=== PATIENT | male | born 2000 | race Caucasian/White ===

== ENCOUNTER 2020-10-25 05:22 | Emergency (ER) | payer BC, SELFPAY ==
[2020-10-25] VITALS (17 sets, daily range): BP systolic 102–129; BP diastolic 59–86; PULSE 66–99; RESP 12–24; TEMP 36.4; O2SAT 97–98
--- NOTE | ~2020-10-25 | CT_ITS ---
EXAMINATION: CT abdomen pelvis w con INDICATION: Right lower quadrant pain TECHNIQUE: Computed tomographic images of the abdomen and pelvis were obtained after the administrati on of 100 cc of Omnipaque 350 intravenous contrast. The dose-length product (DLP) was 228.02 mGy-cm. Automated exposure control and iterative reconstruction technique were employed. COMPARISON: None available FINDINGS: The lung bases are clear. The heart size is normal. The liver, spleen, pancreas, gallbladde r, and adrenal glands are normal. The kidneys are unremarkable. No pathologically enlarged abdominal or pelvic lymph nodes are identified. There is no free intraperitoneal gas or evidence of bowel obstr uction. The appendix is normal. There is questionable wall thickening of the ascending colon. There i s a greater than normal number of fluid-filled, nondistended small bowel loops. IMPRESSION: 1. Possible mild colitis of the ascending colon. Reviewed, dictated and finalized at location A.
--- NOTE | 2020-10-25 05:39 | ED.GENADULT ---
HPI - General Adult General Chief complaint: Abdominal Pain <Robert Daigle MD - Last Filed: 10/25/20 06:55> Stated complaint: n/v/d <Robert Daigle MD - Last Filed: 10/25/20 06:55> Time Seen by Provider: 10/25/20 05:34 <Robert Daigle MD - Last Filed: 10/25/20 06:55> History of Present Illness HPI narrative: Patient is a 19-year-old gentleman who presents to the emergency department with chief complaint of abdominal pain nausea vomiting and diarrhea. Patient states this evening the pain began suddenly and had multiple bouts of nausea and vomiting. The patient reports he is been unable to keep fluids down has had multiple rounds of diarrhea as well. Patient denies fever reports that his abdomen feels achy and cramping is worse on the right lower and right upper quadrants. Patient reports no significant past medical history reports no abdominal surgery history <Robert Daigle MD - Last Filed: 10/25/20 06:55> Related Data Allergies/adverse reactions: Allergies Allergy/AdvReac Type Severity Reaction Status Date / Time Penicillins Allergy Unknown Verified 11/03/16 10:07 <Robert Daigle MD - Last Filed: 10/25/20 06:55> Review of Systems Review of Systems: Narrative: A 10 system review of systems was completed on the patient and is negative except for what is stated in the HPI. Nursing and ancillary documentation was reviewed. <Robert Daigle MD - Last Filed: 10/25/20 06:55> PMFSH Social History Social History: Social History Gender identity (if verbalized by the patient): Male <Robert Daigle MD - Last Filed: 10/25/20 06:55> Comments Past medical history is negative Social history the patient reports to occasionally smoking cigarettes <Robert Daigle MD - Last Filed: 10/25/20 06:55> Exam Narrative: Exam Narrative: GENERAL: Well-appearing, well-nourished, and in no acute distress. HEAD: Normocephalic, atraumatic. EYES: PERRLA and EOMI. ENT: Nares clear, no rhinorrhea or epistaxis. Mucous membranes moist. NECK: Supple. CHEST: Clear to auscultation. No respiratory distress. HEART: Regular rate and rhythm. No murmur heard. Normal peripheral pulses. ABDOMEN: Soft, nontender, nondistended, normal active bowel sounds. EXTREMITIES: Normal range of motion. No edema. SKIN: Warm, dry, no rash. NEURO: No focal deficits. Alert and oriented x3. PSYCH: Normal mood and affect. <Robert Daigle MD - Last Filed: 10/25/20 06:55> Course Vital Signs Vital signs: Vital Signs Temperature 36.4 C 10/25/20 05:30 Pulse Rate 99 10/25/20 05:30 Respiratory Rate 12 10/25/20 05:30 Blood Pressure 126/74 10/25/20 05:30 Pulse Oximetry 98 10/25/20 05:30 Temperature 36.4 C 10/25/20 05:30 Pulse Rate 73 10/25/20 06:31 Respiratory Rate 18 10/25/20 06:31 Blood Pressure 109/65 10/25/20 06:31 Pulse Oximetry 98 10/25/20 05:30 <Robert Daigle MD - Last Filed: 10/25/20 06:55> Vital Signs Temperature 36.4 C 10/25/20 05:30 Pulse Rate 99 10/25/20 05:30 Respiratory Rate 12 10/25/20 05:30 Blood Pressure 126/74 10/25/20 05:30 Pulse Oximetry 98 10/25/20 05:30 Temperature 36.4 C 10/25/20 05:30 Pulse Rate 73 10/25/20 06:31 Respiratory Rate 18 10/25/20 06:31 Blood Pressure 109/65 10/25/20 06:31 Pulse Oximetry 98 10/25/20 05:30 <Gaudencio Gtz MD - Last Filed: 10/25/20 08:54> Medical Decision Making Vital Signs Vital Signs: Vital Signs Temperature 36.4 C 10/25/20 05:30 Pulse Rate 99 10/25/20 05:30 Respiratory Rate 12 10/25/20 05:30 Blood Pressure 126/74 10/25/20 05:30 Pulse Oximetry 98 10/25/20 05:30 Temperature 36.4 C 10/25/20 05:30 Pulse Rate 73 10/25/20 06:31 Respiratory Rate 18 10/25/20 06:31 Blood Pressure 109/65 10/25/20 06:31 Pulse Oximetry 98 10/25/20 05:30
[2020-10-25] MEDS: DICYCLOMINE HCL INJ 20 MG/2 ML VIAL IM (05:50)
[2020-10-25] MEDS: ONDANSETRON INJ 4 MG/2 ML VIAL IV PUSH (05:50)
[2020-10-25] MEDS: MORPHINE SULFATE (*CRX) 4 MG/ML INJ IV PUSH (05:53)
[2020-10-25 06:06] LABS: Basophils Percent Auto 0.2 % (0.2-1.2); Eosinophils Absolute Auto 0.1 K/mm3 (0-0.3); Eosinophils Percent Auto 0.3 % (0-4.4); Hematocrit 50.1 % (42.0-52.0); Hemoglobin 17.7 g/dL (14.0-18.0); Immature Granulocyte Absolute 0.07 K/mm3 (0.00-0.031); Immature Granulocyte Percent A 0.5 % (0-0.5); Lymphocytes Absolute Auto 0.39 K/mm3 (0.9-3.2); Lymphocytes Percent Auto 2.6 % (18.3-44.2); Mean Corpuscular HGB Conc 35.3 g/dl (32-36); Mean Corpuscular Hemoglobin 30.5 pg (26-34); Mean Corpuscular Volume 86.4 fl (80-100); Mean Platelet Volume 9.3 fl (7.4-10.4); Monocytes Percent Auto 6.3 % (2.6-8.5); Neutrophils Absolute Auto 13.7 K/mm3 (1.3-6.7); Neutrophils Percent Auto 90.1 % (45.5-73.1); Platelet Count Result 321 k/mm3 (150-375); Red Cell Distribution Width 12.1 % (11.5-14.5); White Blood Count 15.2 K/mm3 (4.5-10.0)
[2020-10-25] MEDS: SODIUM CHLORIDE 0.9% IV 2,000 ML 999 ML IV CONT (06:12)
[2020-10-25 06:17] LABS: Alanine Aminotransferase 31 U/L (4-50); Albumin Level 5.7 g/dL (3.5-5.1); Alkaline Phosphatase 85 U/L (38-126); Anion Gap 11 mmol/L (8-16); Aspartate Amino Transferase 35 U/L (17-59); Bilirubin,Total 1.8 mg/dL (0.2-1.3); Blood Urea Nitrogen 21 mg/dL (9-20); Calcium 10.3 mg/dL (8.4-10.2); Carbon Dioxide 31 mmol/L (22-30); Chloride 101 mmol/L (98-107); Estimated Glomerular Filt Rate > 60; Glucose 135 mg/dL (75-110); Lipase 57 U/L (23-300); Potassium 4.1 mmol/L (3.4-5.0); Sodium 143 mmol/L (137-145)
--- NOTE | 2020-10-25 07:30 | PC.NURSE ---
Pt not yet provided urine sample. Reiterated importance of providing sample quickly, pt will attempt to avoid again.
[2020-10-25 07:54] LABS: Add Urine Microscopic? NO; Appearance Urine Clear (Clear); Bilirubin Urine Negative (Negative); Blood Urine Negative (Negative); Color Urine Straw (Yellow); Glucose Urine UA Negative (Negative); Ketones Urine Negative (Negative); Leukocyte Esterase Ur Negative LEU/UL (Negative); Nitrate Urine Negative (Negative); Protein Urine Negative (Negative); Urobilinogen Urine Negative mg/dL (<2.0)
[2020-10-25 07:55] LABS: Specific Grav Ur > 1.060 (1.001-1.035)
== END 2020-10-25 09:10 | disposition home or self-care (01) ==
PROVIDERS: Emergency Medicine; Emergency Provider Emergency Medicine; PCP Family Medicine
DX: K52.9 Noninfective gastroenteritis and colitis, unspecified (principal)
CPT/HCPCS: 36415; 74177; 80053; 81003; 83690; 85025; 96361; 96372; 96374; 96375; 99284; J0500; J2270; J2405; J7030; Q9967

== ENCOUNTER 2020-11-09 06:52 | Outpatient (CLI) | payer BC, SELFPAY ==
--- NOTE | ~2020-11-09 | MR_ITS ---
EXAMINATION: MR ankle LT wo con DATE: 11/09/2020 08:12 INDICATION: Osteochondral defect of left ankle. Left ankle pain. TECHNIQUE: Magnetic resonance imaging (MRI) of the left ankle was performed without intravenous contr ast. Sequences included sagittal PD-weighted FS FSE, sagittal PD-weighted FSE, coronal PD-weighted FS FSE, coronal PD-weighted FSE, axial PD-weighted FS FSE, and axial PD-weighted FSE. COMPARISON: None. FINDINGS: Medial ankle ligaments: The superficial and deep components of the deltoid ligament are normal. Lateral ankle ligaments: There are changes of prior sprain of anterior talofibular ligament characterized by increased signal intensity. Calcaneofibular ligament and posterior talofibular ligament are normal. The anterior and p osterior tibiofibular ligaments are normal. Tendons: The anterior and medial ankle tendons are normal. There is a longitudinal split tear of peroneus long us tendon. There is mild peroneus longus tendinopathy. Achilles tendon is normal. Plantar fascia: Normal. Bones/other: The talar dome is normal. There is bone marrow edema in medial and lateral malleoli, consistent with stress reaction. There is a skin marker plantar to the midfoot. Fluid: There is a small ankle joint effusion. IMPRESSION: 1. Normal talar dome. 2. Longitudinal split tear of peroneus longus tendon. 3. Bone marrow edema in medial lateral malleoli, consistent with stress reaction. 4. Changes of sprain of anterior talofibular ligament. Reviewed, dictated and finalized at location A. IMPRESSION: 1. Normal talar dome. 2. Longitudinal split tear of peroneus longus tendon. 3. Bone marrow edema in medial lateral malleoli, consistent with stress reactio n. 4. Changes of sprain of anterior talofibular ligament.
== END 2020-11-09 06:53 | disposition home or self-care (01) ==
PROVIDERS: PCP Family Medicine
DX: M95.8 Other specified acquired deformities of musculoskeletal system (principal)
CPT/HCPCS: 73721

== ENCOUNTER 2022-06-25 23:39 | Emergency (ER) | payer BC, SELFPAY ==
[2022-06-25 23:47] VITALS: BP 127/57; PULSE 100; RESP 16; TEMP 37.7; O2SAT 98
[2022-06-26 00:09] LABS: Alanine Aminotransferase 37 U/L (6-50); Albumin Level 4.7 g/dL (3.5-5.1); Alkaline Phosphatase 60 U/L (38-126); Anion Gap 12 mmol/L (8-16); Aspartate Amino Transferase 31 U/L (17-59); Bilirubin,Total 0.6 mg/dL (0.2-1.3); Blood Urea Nitrogen 16 mg/dL (9-20); Calcium 8.8 mg/dL (8.4-10.2); Carbon Dioxide 26 mmol/L (22-30); Chloride 100 mmol/L (98-107); Estimated CRCL calculation 116 ml/min; Estimated Glomerular Filt Rate > 60; Glucose 97 mg/dL (65-110); Lipase 54 U/L (23-300); Potassium 3.7 mmol/L (3.4-5.0); Sodium 138 mmol/L (137-145)
[2022-06-26 00:12] LABS: Basophils Percent Auto 0.6 % (0.2-1.2); Eosinophils Absolute Auto 0.2 K/mm3 (0-0.3); Eosinophils Percent Auto 2.8 % (0-4.4); Hematocrit 43.6 % (42.0-52.0); Hemoglobin 15.1 g/dL (14.0-18.0); Immature Granulocyte Absolute 0.02 K/mm3 (0.00-0.031); Immature Granulocyte Percent A 0.4 % (0-0.5); Lymphocytes Absolute Auto 1.41 K/mm3 (0.9-3.2); Lymphocytes Percent Auto 26.2 % (18.3-44.2); Mean Corpuscular HGB Conc 34.6 g/dl (32-36); Mean Corpuscular Hemoglobin 29.7 pg (26-34); Mean Corpuscular Volume 85.8 fl (80-100); Monocytes Absolute Auto 0.8 K/mm3 (0.1-0.6); Monocytes Percent Auto 14.1 % (2.6-8.5); Neutrophils Percent Auto 55.9 % (45.5-73.1); Platelet Count Result 227 k/mm3 (150-375); Red Blood Count 5.08 M/mm3 (4.6-6.20); Red Cell Distribution Width 12.1 % (11.5-14.5); White Blood Count 5.4 K/mm3 (4.5-10.0)
[2022-06-26 00:41] VITALS: O2SAT 97
[2022-06-26 00:42] LABS: Influenza A QL RT-PCR Negative (Negative); Influenza B QL RT-PCR Negative (Negative); SARS-CoV-2 RNA PCR Negative
[2022-06-26 00:46] VITALS: BP 113/70; PULSE 73; RESP 18; TEMP 36.7; O2SAT 99
--- NOTE | 2022-06-26 01:00 | ED.NAVMDI ---
HPI - Nausea/Vomiting/Diarrhea General Chief complaint: Nausea/Vomiting/Diarrhea Stated complaint: diarrhea Time Seen by Provider: 06/26/22 00:29 History of Present Illness HPI Narrative: Patient is a 21-year-old male presenting with 3 days of diarrhea. Patient states that starting on he began having diarrhea. States he had 1 episode of vomiting at that time. States he has been able to eat and drink but he has had intermittent nausea. States that he has been having diarrhea every couple of hours and he is sick of it. States that he took 1 dose of Imodium with out improvement. He complains of very mild bilateral lower abdominal cramping. Reports subjective fever. He denies headache, chest pain, shortness of breath, cough, dysuria, increased urinary frequency, rashes. Related Data Allergies Allergy/AdvReac Type Severity Reaction Status Date / Time Penicillins Allergy Unknown Unknown Verified 06/25/22 23:50 Review of Systems Review of Systems: All systems reviewed & are unremarkable except as noted in HPI and below PMFSH Social History Social History Gender identity (if verbalized by the patient): Male Exam Narrative: GENERAL: Well-appearing, well-nourished, and in no acute distress. HEAD: Normocephalic, atraumatic. EYES: PERRLA and EOMI. ENT: Nares clear, no rhinorrhea or epistaxis. Mucous membranes moist. NECK: Supple. CHEST: Clear to auscultation. No respiratory distress. HEART: Regular rate and rhythm. No murmur heard. Normal peripheral pulses. ABDOMEN: Soft, nontender, nondistended, normal active bowel sounds. EXTREMITIES: Normal range of motion. No edema. SKIN: Warm, dry, no rash. NEURO: No focal deficits. Alert and oriented x3. PSYCH: Normal mood and affect. Course Vital Signs Vital signs: Vital Signs Temperature 99.9 F H 06/25/22 23:47 Pulse Rate 100 06/25/22 23:47 Respiratory Rate 16 06/25/22 23:47 Blood Pressure 127/57 L 06/25/22 23:47 Pulse Oximetry 98 06/25/22 23:47 Oxygen Delivery Room Air 06/25/22 23:47 Temperature 98.1 F 06/26/22 00:46 Pulse Rate 73 06/26/22 00:46 Respiratory Rate 18 06/26/22 00:46 Blood Pressure 113/70 06/26/22 00:46 Pulse Oximetry 99 06/26/22 00:46 Oxygen Delivery Room Air 06/25/22 23:47 MDM - Nausea/Vomiting/Diarrhea MDM Narrative Medical decision making narrative: Patient is a 21-year-old male presenting with several days of diarrhea and nausea. Vitals are within normal limits. Patient is very well-appearing and in no acute distress. Abdomen is soft and nontender. Blood work is unremarkable. Suspect the patient has a case of viral gastroenteritis. Discussed appropriate dosing of Imodium. Patient is tolerating p.o. intake. Feel he is safe for outpatient management. Recommended he follow-up with his PCP. Appropriate return precautions given. Patient voiced understanding and is agreeable with plan. Discharged in stable condition. Lab Data 06/25/22 23:53 06/25/22 23:53 Labs: Lab Results 06/25/22 06/25/22 06/25/22 Range/Units 23:53 23:53 23:53 WBC 5.4 (4.5-10.0) K/mm3 RBC 5.08 (4.6-6.20) M/mm3 Hgb 15.1 (14.0-18.0) g/dL Hct 43.6 (42.0-52.0) % MCV 85.8 (80-100) fl MCH 29.7 (26-34) pg MCHC 34.6 (32-36) g/dl RDW 12.1 (11.5-14.5) % Plt Count 227 (150-375) k/mm3 MPV 9.0 (7.4-10.4) fl Immature Gran % (Auto) 0.4 (0-0.5) % Neut % (Auto) 55.9 (45.5-73.1) % Lymph % (Auto) 26.2 (18.3-44.2) % [place] % (Auto) 14.1 H (2.6-8.5) % Eos % (Auto) 2.8 (0-4.4) % Baso % (Auto) 0.6 (0.2-1.2) % Lymph # (Auto) 1.41 (0.9-3.2) K/mm3 [place] # (Auto) 0.8 H (0.1-0.6) K/mm3 Eos # (Auto) 0.2 (0-0.3) K/mm3 Baso # (Auto) 0.0 (0.0-0.1) K/mm3 Abs Immat Gran (auto) 0.02 (0.00-0.031) K/mm3 Absolute Neuts (auto) 3.0 (1.3-6.7) K/mm3 Absolute Nucle
[2022-06-26] MEDS: LOPERAMIDE HCL 2 MG CAPSULE 4 MG PO (01:19)
== END 2022-06-26 01:28 | disposition home or self-care (01) ==
PROVIDERS: Emergency Provider Emergency Medicine; PCP Family Medicine
DX: K52.9 Noninfective gastroenteritis and colitis, unspecified (principal); Z20.822 Contact with and (suspected) exposure to COVID-19
CPT/HCPCS: 36415; 80053; 83690; 85025; 87636; 99283; A9270

== ENCOUNTER 2024-08-22 14:50 | Emergency (ER) | payer OTHER, SELFPAY ==
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
[2024-08-22 15:19] VITALS: BP 152/99; PULSE 74; RESP 16; TEMP 37; O2SAT 100
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
--- NOTE | 2024-08-22 16:25 | PC.NURSE ---
Pt taken to Xray
--- OUTSIDE RECORDS SUMMARY | 2024-08-23 05:50 | XMS_ITS | Continuity of Care Document ---
Author Organization [facility] Address [address] [place] [address] Phone Care Team Providers Care Electric Motor Analyst Name Role Phone Conversion MD, Doctor Unavailable Unavailabl e Medications Medication Instructions Dosage Effective Dates (start - stop) Status Comments AUGMENTIN 400-57MG/5 ML 5 BID - Active RHINOCORT NASAL INHALER 2 QD - Active PULMICORT 0.25MG/2ML ML 2 QAM - Active PULMICORT 0.5MG/2ML RESPULE 2 QPM - Active ALBUTEROL SULFATE 5MG/ML ML .5 Q 4HR - Active ORAPRED 15MG/5ML ML 10 QD - No Longer Active give for 5 days PULMICORT 0.5MG/2ML ML 2 BID - No Longer Active RHINOCORT 32MCG PUFFS 2 QD - No Longer Active Advance Directives Directive Yes / No Effective Date File Name No Information Encounters Encounter Description Practice Location Reason(s) For Visit Diagnoses Date Provider Providers Copied on Encounter [facility], [address], [place], [place], [id number], [place] tel:[phone] Conversion Department No Information 1 Conversion Doctor. Carmen Cabral, [place], [address], [place]. Family History Family Member Type Diagnosis Age At Onset No Information Payers Payer name Insurance type Covered green party ID Authoriza tion(s) No Information Social History Type Description Quantity Date Captured Comments Sex Male Smoking Status No Information Chief Complaint And Reason For Visit No Information Reason For Referral Reason For Referral No Information History Of Present Illness Encounter Date Complaint History Of Prese nt Illness No Information Functional Status Date Functional Assessmen t No Information Instructions Date Instruction Additional Infor mation No Information Assessments Type Assessment Date No Information Patient Care Teams Name Effective Dates (start - stop) Status Members No Information
--- OUTSIDE RECORDS SUMMARY | 2024-08-23 05:50 | XMS_ITS | Clinical Summary ---
Author Organization [facility] Address [address] [place] [address]. [place], [place] [address] [place] [id number] Care Team Providers Care Fuel System Maintenance Supervisor Name Role Phone Tye Copeland MD Primary Care Provider [phone] Allergies Active Allergy Reactions Criticality Noted Date Comments Penicillins Rash Low 10/02/2020 Vancomycin Unknown 11/18/2020 Medications famotidine (PEPCID AC) 10 MG tablet Act kali Family History Medical History Relation Comments Hypertension Father Diabetes Mother Relation Status Comments Father Alive Mother Alive Social History Tobacco Use Types Packs/Day Years Used Date Smoking Tobacco: Some Days Smokeless Tobacco: Never Tobacco Cessation:Ready to Q uit: No; Counseling Given: Yes Comments:John to cosmetic counselor Alcohol Use Standard Drinks/Week Comments Yes 0 (1 standard drink = 0.6 oz pur e alcohol) Sex and Gender Information Value Date Recorded Sex Assigned at Not on file Legal Sex Male 7:17 PM CDT Gender Identity Not on file Sexual Orientation Not on file Last Filed Vital Signs Vital Sign Reading Time Taken Comments Blood Pressure 129/66 11/18/2020 1:41 PM CDT Pulse 64 11/18/2020 1:41 PM CDT Temperature 36.4 ??C (97.6 ??F) 11/02/2020 3:36 PM CD T Respiratory Rate 18 11/02/2020 3:36 PM CDT Oxygen Saturation 96% 11/02/2020 3:36 PM CDT Inhaled Oxygen Concentration - - Weight 67.4 kg (148 lb 11.2 oz) 11/18/2020 1:41 PM CDT Height 172.7 cm (5' 8 ) 11/18/2020 1:41 PM CDT Body Mass Index 22.61 11/18/2020 1:41 PM CDT Plan of Treatment Health Maintenance Due Date Last Done Comments Annual Physical 2001 Pneumococcal Vaccine: Pediatrics (0 to 5 Years) and At-Risk Patients (6 to 64 Years) (1 of 2 - PCV) 2004 HPV Vaccines (1 - Male 3-dose series) 2013 Hepatitis C 2016 Hepatitis B Vaccines (1 of 3 - 19+ 3-dose series) 2017 COVID-19 Vaccine (1 - season) 2024 Influenza Adult (#1) 2024 DTaP, Tdap and Td Vaccines (6 - Tdap) 11/19/2024 11/19/2014, 11/19/2014, 06/01/1999, Additional history exists Meningococcal Vaccine Completed 01/27/2016, 015 RSV Immunizations Under 20 Months Aged Out No longer eligible based on patient's age to complete this topic Insurance [facility] Care Teams Fuel System Maintenance Supervisor Relationship Specialty Start Date End Date Tye Copeland MD [address] [place] [address] [place] [id number] PCP - General 11/15/14
[2024-08-23 08:40] LABS: Estimated CRCL calculation 91 ml/min; Estimated Glomerular Filt Rate > 60
== END 2024-08-22 19:07 | disposition home or self-care (01) ==
PROVIDERS: Emergency Provider Physician Assistant; PCP Family Medicine
DX: S39.012A Strain of muscle, fascia and tendon of lower back, initial encounter (principal); S16.1XXA Strain of muscle, fascia and tendon at neck level, initial encounter; S00.81XA Abrasion of other part of head, initial encounter; S86.911A Strain of unspecified muscle(s) and tendon(s) at lower leg level, right leg, initial encounter; V89.2XXA Person injured in unspecified motor-vehicle accident, traffic, initial encounter; W22.10XA Striking against or struck by unspecified automobile airbag, initial encounter
CPT/HCPCS: 36415; 70450; 71260; 72125; 72129; 72132; 73564; 74177; 82565; 99284; Q9967